=== PATIENT | male | born 1990 | race Caucasian/White ===

== ENCOUNTER 2019-08-31 21:09 | Emergency (ER) | payer OTHER ==
[~2019-08-31] VITALS: Ht 172.7 cm; Wt 88.0 kg
--- NOTE | 2019-08-31 21:59 | RAD ---
RS Compliance Statement: One or more of the following individualized dose reduction techniques were utilized for this examination: 1. Automated exposure control 2. Adjustment of the mA and/or kV according to patient size 3. Use of iterative reconstruction technique CT HEAD WITHOUT CONTRAST History: Dizzy, syncopal episode. Comparison: None. Procedure: Axial images are obtained of the head from the skull base through the vertex without IV contrast. Findings: The ventricles and sulci are normal for the patient's age. No mass-effect, midline shift, hemorrhage, extra-axial fluid collection, or obvious acute infarction is identified. Basilar cisterns are patent. Bone windows demonstrate no acute calvarial abnormality. The visualized paranasal sinuses are clear. Mastoid air cells are well aerated. IMPRESSION: No acute intracranial abnormality. Electronically signed by: Wagner Rice MD (08/31/2019 9:56 PM) [facility]
[2019-08-31] MEDS: IV NORMAL SALINE 1,000ML 1,000 ML IV ONE (22:00)
--- NOTE | 2019-08-31 22:06 | PHYS DOC ---
Past History Past Medical History: Other Additional Past Medical Histor: ADD Past Surgical History: Other Additional Past Surgical Histo: L SHOULDER, R PEC, R WRIST Alcohol Use: Occasionally Drug Use: None Adult General Chief Complaint Chief Complaint: DIZZY/LIGHT HEADED HPI HPI 28-year-old male presents with a couple episode yesterday and near-syncope today. He had left shoulder surgery 4 days ago. Yesterday, the patient is having pain and was getting ready to take a shower when I started talking was given a blackout. He sat down for about 15 minutes and began to feel better. His was helping him. As she stood back up to try to take a shower, he felt like he h as had a CT scan and before he could sit down he did have a syncopal episode. His was only able to partially catch him. He did not hit his head. He woke up after a brief period of unconsciousness. He was sleepy, but not postictal. He was very diaphoretic but did not have chest pain or shortness of breath. He decided not to come into the emergency room at that time. Today, he has been doing okay, but was outside with his dogs began to get a feeling of flushness and like he might pass out again. The patient has what decided he should be evaluated. The patient admits that he is taking 2 Lester 5/325 pills every 6 hours, but his pain is not well controlled. He additionally started taking an aspirin today. He is not taking any naproxen or ibuprofen. He denies fever. Review of Systems Review of Systems Constitutional: Denies fever or chills. Episodes of diaphoresis. [] Eyes: Denies change in visual acuity, redness, or eye pain [] HENT: Denies nasal congestion or sore throat [] Respiratory: Denies cough or shortness of breath [] Cardiovascular: No additional information not addressed in HPI [] GI: Denies abdominal pain, nausea, vomiting, bloody stools or diarrhea [] : Denies dysuria or hematuria [] Musculoskeletal: Left shoulder pain post surgery[] Integument: Denies rash or skin lesions [] Neurologic: Syncope. Denies headache, focal weakness or sensory changes [] Endocrine: Denies polyuria or polydipsia [] All other systems were reviewed and found to be within normal limits, except as documented in this note. Current Medications Current Medications Current Medications Medications (Trade) Dose Ordered Sig/Brain Start Time Stop Time Status Last Admin Dose Admin Sodium Chloride 1,000 ml @ 1,000 mls/hr 1X ONCE 08/31/19 22:00 08/31/19 22:59 Allergies Allergies Allergies Coded Allergies Type Severity Reaction Last Updated Verified morphine Allergy Mild NAUSEA 08/31/19 Yes Physical Exam Physical Exam Constitutional: Well developed, well nourished, no acute distress, non-toxic appearance. Patient appears uncomfortable with any movement of his left arm.[] HENT: Normocephalic, atraumatic, bilateral external ears normal, oropharynx dry, no oral exudates, nose normal. [] Eyes: PERRLA, EOMI, conjunctiva normal, no discharge. [] Neck: Normal range of motion, no tenderness, supple, no stridor. [] Cardiovascular:Heart rate regular rhythm, no murmur [] Lungs & Thorax: Bilateral breath sounds clear to auscultation [] Abdomen: Bowel sounds normal, soft, no tenderness, no masses, no pulsatile masses. [] Skin: Warm, dry, no erythema, no rash. Incisions of the left shoulder covered with Band-Aids. The surrounding skin is not erythematous or warm. [] Back: No tenderness, no CVA tenderness. [] Extremities: Left arm in a simple sling.[] Neurologic: Alert and oriented X 3, normal motor function, normal sensory function, no focal deficits noted. [] Psychologic: Affect normal, judgement normal, mood normal. [] Current Patient Data Vital Signs Vital Signs Date Time Temp Pulse Resp B/P (MAP) Pulse Ox O2 Delivery O2 Flow Rate FiO2 08/31/19 21:27 98.1 102 18 98 Room Air EKG EKG [] Radiology/Procedures Radiology/Procedures [] Impressions: PQRS Compliance Statement: One or more of the following individualized dose reduction techniques were utilized for this examination: 1. Automated exposure control 2. Adjustment of the mA and/or kV according to patient size 3. Use of iterative reconstruction technique CT HEAD WITHOUT CONTRAST History: Dizzy, syncopal episode. Comparison: None. Procedure: Axial images are obtained of the head from the skull base through the vertex without IV contrast. Findings: The ventricles and sulci are normal for the patient's age. No mass-effect, midline shift, hemorrhage, extra-axial fluid collection, or obvious acute infarction is identified. Basilar cisterns are patent. Bone windows demonstrate no acute calvarial abnormality. The visualized paranasal sinuses are clear. Mastoid air cells are well aerated. IMPRESSION: No acute intracranial abnormality. Electronically signed by: Wagner Carr MD (08/31/2019 9:56 PM) [facility] DICTATED AND SIGNED BY: WAGNER CARR MD DATE: 08/31/192155 CC: SUZE MENESES DO; NEGIN ORTEGA ~ Course & Med Decision Making Course & Med Decision Making Pertinent Labs and Imaging studies reviewed. (See chart for details) Patient's labs are unremarkable. His EKG is unremarkable. His troponin is negative. His head CT is negative for acute findings. I believe the patient is having vasovagal syncope and near syncope due to uncontrolled pain. I have advised that he take the 2 Lester every 4 hours as his surgeon has suggested. Also advised that he talk to the surgeon's office tomorrow about adding ibuprofen to his pain regimen. I will give the patient 2 Lester 5/325 for pain before he leaves. The patient is stable for discharge at this time. [] Dragon Disclaimer Dragon Disclaimer This electronic medical record was generated, in whole or in part, using a voice recognition dictation system. Departure Departure: Impression: Primary Impression: Vasovagal syncope Disposition: 01 HOME, SELF-CARE Condition: STABLE Referrals: NEGIN ORTEGA (PCP) Patient Instructions: Syncope, [id number] USZE MENESES DO Aug 31, 2019 22:06
[2019-08-31 22:17] LABS: BASO # 0.2 x10^3/uL (0.0-0.2); BASO % 1 % (0-3); EOS # 0.1 x10^3/uL (0.0-0.7); EOS % 1 % (0-3); HEMATOCRIT 47.6 % (39.0-53.0); HEMOGLOBIN 15.9 g/dL (13.0-17.5); LYMPH % 26 % (24-48); MEAN CORPUSCULAR HEMOGLOBIN 26 pg (25-35); MEAN CORPUSCULAR HGB CONC 33 g/dL (31-37); MEAN CORPUSCULAR VOLUME 78 fL (79-100); MONO # 0.8 x10^3/uL (0.0-1.1); MONO % 7 % (0-9); NEUT # 7.7 x10^3uL (1.8-7.7); NEUT % 65 % (31-73); PLATELET COUNT 252 x10^3/uL (140-400); RED BLOOD COUNT 6.07 x10^6/uL (4.30-5.70); RED CELL DISTRIBUTION WIDTH 13.6 % (11.5-14.5); WHITE BLOOD COUNT 11.8 x10^3/uL (4.0-11.0)
[2019-08-31 22:26] LABS: CALCIUM 9.1 mg/dL (8.5-10.1); GFR 89.6; POTASSIUM 3.9 mmol/L (3.5-5.1)
[2019-08-31 22:30] LABS: ALBUMIN 3.9 g/dL (3.4-5.0); ALBUMIN/GLOBULIN RATIO 1.2 (1.0-1.7); TOTAL BILIRUBIN 0.2 mg/dL (0.2-1.0); TOTAL PROTEIN 7.1 g/dL (6.4-8.2)
[2019-08-31 22:30] LABS: BARBITURATES NEG (NEG); BENZODIAZEPINES NEG (NEG); BILIRUBIN,URINE NEG (NEG); CANNABINOIDS NEG (NEG); CLARITY,URINE CLEAR; COCAINE NEG (NEG); COLOR,URINE YELLOW; GLUCOSE,URINE NEG (NEG); METHADONE NEG (NEG); OPIATES POS (NEG); PHENCYCLIDINE NEG (NEG)
[2019-08-31 22:31] LABS: AMPHETAMINE/METHAMPHETAMINE NEG (NEG); BACTERIA,URINE 0 /HPF (0-FEW); NITRITE,URINE NEG (NEG); RBC,URINE OCC /HPF (0-2); SQUAMOUS EPITHELIAL CELL,UR OCC /LPF; UROBILINOGEN,URINE 0.2 mg/dL (0.2 mg/dL); WBC,URINE OCC /HPF (0-4)
[2019-08-31 22:32] VITALS: BP 128/51
[2019-08-31] MEDS: HYDROcodone/APAP 5/325MG 1 TAB TABLET PO ONE (22:49)
--- NOTE | 2019-09-01 01:59 | RAD ---
CHEST PA LATERAL INDICATION: Dizziness. COMPARISON STUDY: None. FINDINGS: Lungs: Normal lung volume. No pulmonary mass or consolidation. The tracheobronchial tree and hilar structures are normal. Pleura: No pleural effusion or pneumothorax. Heart and Mediastinum: The cardiomediastinal silhouette is normal. The great vessels of the thorax are normal. Bones and Soft Tissues: The bones and soft tissues are within normal limits. IMPRESSION: No acute cardiopulmonary process. Electronically signed by: Elio Pruitt MD (09/01/2019 1:56 AM) [facility]
--- NOTE | 2019-09-01 21:50 | EKG ---
[address] [address] Test Date: 2019-08-31 Test Time: 22:06:51 Pat Name: FRANKY OLSON Department: Room: Gender: M Ceramic Tile Setter: : 1990 Requested By: SUZE MENESES Order Number: [id number] Reading MD: Measurements Intervals [place] Rate: 84 P: 52 CT: 170 QRS: 59 QRSD: 90 T: 38 QT: 344 QTc: 410 Interpretive Statements SINUS RHYTHM NO SPECIFIC ECG ABNORMALITIES RI6.01 No previous ECG available for comparison
== END 2019-08-31 22:53 | disposition home or self-care (01) ==
LOC: ER 21:09
DX: R55 Syncope and collapse (principal); G89.18 Other acute postprocedural pain; M25.512 Pain in left shoulder; F98.8 Other specified behavioral and emotional disorders with onset usually occurring in childhood and adolescence; Z98.890 Other specified postprocedural states
CPT/HCPCS: 36415; 70450; 71046; 80053; 80307; 81001; 85025; 93005; 96360; 99285-25; J7030

== ENCOUNTER 2019-12-13 14:49 | Emergency (ER) | payer OTHER ==
[~2019-12-13] VITALS: Ht 172.7 cm; Wt 125.0 kg
--- NOTE | 2019-12-13 15:20 | PHYS DOC ---
Past History Past Medical History: No Pertinent History, Other Additional Past Medical Histor: ADD Past Surgical History: Other Additional Past Surgical Histo: L SHOULDER, R PEC, R WRIST Alcohol Use: Occasionally Drug Use: None Adult General Chief Complaint Chief Complaint: SHORTNESS OF BREATH [facility] HPI 29-year-old male presents with cough, mild shortness of breath, body aches. 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 He has had these symptoms for several days. He is concerned about COVID 19. Review of Systems Review of Systems Constitutional: Chills, body aches [] Eyes: Denies change in visual acuity, redness, or eye pain [] HENT: Denies nasal congestion or sore throat [] Respiratory: Cough with mild shortness of breath [] Cardiovascular: No additional information not addressed in HPI [] GI: Denies abdominal pain, nausea, vomiting, bloody stools or diarrhea [] : Denies dysuria or hematuria [] Musculoskeletal: Denies back pain or joint pain [] Integument: Denies rash or skin lesions [] Neurologic: Denies headache, focal weakness or sensory changes [] Endocrine: Denies polyuria or polydipsia [] All other systems were reviewed and found to be within normal limits, except as documented in this note. Allergies Allergies Allergies Coded Allergies Type Severity Reaction Last Updated Verified morphine Allergy Mild NAUSEA 08/31/19 Yes Physical Exam Physical Exam Constitutional: Well developed, well nourished, no acute distress, appears ill but not toxic. [] HENT: Normocephalic, atraumatic, bilateral external ears normal, oropharynx moist, no oral exudates, nose normal. [] Eyes: PERRLA, EOMI, conjunctiva normal, no discharge. [] Neck: Normal range of motion, no tenderness, supple, no stridor. [] Cardiovascular:Heart rate regular rhythm, no murmur [] Lungs & Thorax: Bilateral breath sounds clear to auscultation [] Abdomen: Bowel sounds normal, soft, no tenderness, no masses, no pulsatile masses. [] Skin: Warm, dry, no erythema, no rash. [] Back: No tenderness, no CVA tenderness. [] Extremities: No tenderness, no cyanosis, no clubbing, ROM intact, no edema. [] Neurologic: Alert and oriented X 3, normal motor function, normal sensory function, no focal deficits noted. [] Psychologic: Affect normal, judgement normal, mood normal. [] Current Patient Data Vital Signs Vital Signs Date Time Temp Pulse Resp B/P (MAP) Pulse Ox O2 Delivery O2 Flow Rate FiO2 12/13/19 14:50 97.2 123/84 (97) EKG EKG [] Radiology/Procedures Radiology/Procedures [] Impressions: CHEST AP ONLY History: Shortness of breath Comparison: August 31, 2019 Findings: Single view of the chest is submitted. No significant infiltrate is identified by radiograph. There is no dependent pleural fluid or pneumothorax. Heart size is stable, within normal limits. Impression: 1. No significant infiltrate is identified by radiograph. Electronically signed by: William Cruz MD (12/13/2019 3:23 PM) [facility] [place] [facility] DICTATED AND SIGNED BY: WILLIAM CRUZ MD DATE: 12/13/19 1523 CC: SUZE MENESES DO; NEGIN ORTEGA ~ Course & Med Decision Making Course & Med Decision Making Pertinent Labs and Imaging studies reviewed. (See chart for details) The patient's history and his history of recent exposure to coronavirus patients makes it likely that he has coronavirus. The patient does not meet criteria to be admitted. He will not be tested at this time. I have advised him to quarantine himself until he is completely well for least 3 days. He is stable for discharge at this time. [] Dragon Disclaimer Dragon Disclaimer This electronic medical record was generated, in whole or in part, using a voice recognition dictation system. Departure Departure: Impression: Primary Impression: COVID-19 Disposition: 01 HOME, SELF-CARE Condition: STABLE Referrals: NEGIN ORTEGA (PCP) Patient Instructions: Viral Syndrome Additional Instructions: You should stay home and self quarantine. Anyone else in her household should also quarantine from the public. You should not into this quarantine until you have been feeling completely symptom-free for at least 3 days. If your condition worsens, call your doctor, the emergency room, or return to the emergency room if you feel your condition is life-threatening. SUZE MENESES DO Dec 13, 2019 15:20
--- NOTE | 2019-12-13 15:26 | RAD ---
CHEST AP ONLY History: Shortness of breath Comparison: August 31, 2019 Findings: Single view of the chest is submitted. No significant infiltrate is identified by radiograph. There is no dependent pleural fluid or pneumothorax. Heart size is stable, within normal limits. Impression: 1. No significant infiltrate is identified by radiograph. Electronically signed by: Elio Ordonez MD (12/13/2019 3:23 PM) [facility] [place]
[2019-12-13 15:48] LABS: INFLUENZA A PATIENT NEGATIVE (NEGATIVE); INFLUENZA B PATIENT NEGATIVE (NEGATIVE)
[2019-12-13 16:54] VITALS: BP 123/85
--- NOTE | 2019-12-16 10:00 | NUR ---
received call from lab, covid-19 is negative. ER notified.
== END 2019-12-13 17:00 | disposition home or self-care (01) ==
LOC: ER 14:49
DX: U07.1 COVID-19 (principal); Z88.5 Allergy status to narcotic agent
CPT/HCPCS: 71045; 87070; 87635; 87804; 87880; 99284

== ENCOUNTER 2020-06-18 10:35 | Emergency (ER) | payer OTHER ==
[~2020-06-18] VITALS: Ht 172.7 cm; Wt 125.0 kg
[2020-06-18] MEDS ORDERED: IV NORMAL SALINE 1,000ML 1,000 ML IV ONE (11:00)
[2020-06-18] MEDS ORDERED: MECLIZINE 12.5 MG TABLET. PO ONE (11:15)
--- NOTE | 2020-06-18 11:31 | PHYS DOC ---
Past History Past Medical History: No Pertinent History, Other Additional Past Medical Histor: ADD Past Surgical History: Other Additional Past Surgical Histo: L SHOULDER, R PEC, R WRIST Alcohol Use: Occasionally Drug Use: None General Adult EDM: Chief Complaint: OTHER COMPLAINTS HPI: HPI: Patient is a 29 year old M who presents with 20-30 min episodes of dizziness, diaphoresis, nausea, and hot flashes. He states that these episodes started yesterday afternoon after taking his second dose of tramadol which he was prescribed for his shoulder injury. He states that he had 2 episodes yesterday after standing up, and laying down and closing his eyes would help. This morning he had an episode in the car while sitting, during this he noticed some tingling in his left leg. He reports some generalized weakness and confusion. He denies any palpitations, shortness of breath, or chest pain. Pt states that he has been drinking 1/2 gallon of water everyday, but has lost some of his appetite. Review of Systems: Review of Systems: Constitutional: Denies fever or chills Eyes: Denies redness or eye pain HENT: Denies nasal congestion or sore throat Respiratory: Denies cough or shortness of breath Cardiovascular: Denies chest pain or palpitations GI: Denies abdominal pain, vomiting; reports nausea : Denies dysuria or hematuria Musculoskeletal: Denies back pain or joint pain Integument: Denies rash or skin lesions Neurologic: Denies headache or focal weakness Complete systems were reviewed and found to be within normal limits, except as documented in this note. Current Medications: Current Meds: Current Medications Medications (Trade) Dose Ordered Sig/Brain Start Time Stop Time Status Last Admin Dose Admin Dexamethasone Sodium Phosphate (Decadron) 10 mg 1X ONCE 06/18/20 12:00 06/18/20 12:01 Lorazepam (Ativan Inj) 0.5 mg 1X ONCE 06/18/20 11:00 06/18/20 11:02 DC 06/18/20 11:20 0.5 MG Meclizine HCl (Antivert) 25 mg 1X ONCE 06/18/20 11:15 06/18/20 11:16 DC 06/18/20 11:16 25 MG Sodium Chloride 1,000 ml @ 1,000 mls/hr 1X ONCE 06/18/20 11:00 06/18/20 11:59 06/18/20 11:18 1,000 MLS/HR Allergies: Allergies: Allergies Coded Allergies Type Severity Reaction Last Updated Verified morphine Allergy Mild NAUSEA 06/18/20 Yes Physical Exam: PE: Constitutional: Well developed, well nourished, no acute distress HENT: Normocephalic, atraumatic Eyes: EOMI, conjunctiva normal, no discharge Neck: Normal range of motion, supple Lungs & Thorax: No respiratory distress, equal chest rise and fall Abdomen: Soft, no tenderness Skin: Warm, no erythema, no rash Back: No tenderness, no CVA tenderness Extremities: No tenderness, no edema Neurologic: Alert and oriented X 3, no focal deficits noted Psychologic: Affect normal, judgment normal Current Patient Data: Vital Signs: Vital Signs Date Time Temp Pulse Resp B/P (MAP) Pulse Ox O2 Delivery O2 Flow Rate FiO2 06/18/20 10:46 97.9 94 13 123/65 (84) 99 Room Air EKG: EKG: @11:06 Normal sinus rhythm at [address] elevations or T wave inversions. QRS 82 ms, QT 326 ms, QTc 418 ms. Radiology/Procedures: Radiology/Procedures: [] Course & Med Decision Making: Course & Med Decision Making Pertinent Labs and Imaging studies reviewed. (See chart for details) [] Dragon Disclaimer: [employer] Disclaimer: This electronic medical record was generated, in whole or in part, using a voice recognition dictation system. Departure Departure: Impression: Primary Impression: Vertigo Additional Impression: Medication adverse effect Qualified Codes: T50.905A - Adverse effect of unspecified drugs, medicaments and biological substances, initial encounter Disposition: 01 HOME/RESIDENCE PRIOR TO ADM Condition: STABLE Referrals: NEGIN ORTEGA BUSINESS DEVELOPMENT ANALYST-C (PCP) Patient Instructions: Vertigo, [id number] Additional Instructions: Symptoms may be secondary to "tramadol". Please discontinue further use and add to allergies. Scripts Hydrocodone Bit/Acetaminophen (NORCO 5-325 TABLET) 1 Each Tablet 0.5-1 TAB PO Q6HRS PRN for PAIN, #10 TAB Prov: MARILU LEON DO 06/18/20 Meclizine Hcl (MECLIZINE HCL) 25 Mg Tablet 1 TAB PO PRN TID PRN for DIZZINESS, #20 TAB Prov: MARILU LEON DO 06/18/20 Prednisone (PREDNISONE) 20 Mg Tablet 2 TAB PO DAILY for Sinus congestion, #8 TAB Start this prescription tomorrow, 06/19/2020 Prov: MARILU LEON DO 06/18/20 MARILU LEON DO Jun 18, 2020 11:31
[2020-06-18 11:39] LABS: BASO # 0.1 x10^3/uL (0.0-0.2); BASO % 1 % (0-3); EOS % 0 % (0-3); HEMATOCRIT 45.7 % (39.0-53.0); HEMOGLOBIN 15.2 g/dL (13.0-17.5); LYMPH # 1.4 x10^3/uL (1.0-4.8); LYMPH % 11 % (24-48); MEAN CORPUSCULAR HEMOGLOBIN 26 pg (25-35); MEAN CORPUSCULAR HGB CONC 33 g/dL (31-37); MEAN CORPUSCULAR VOLUME 77 fL (79-100); MONO # 0.5 x10^3/uL (0.0-1.1); MONO % 4 % (0-9); NEUT # 10.7 x10^3uL (1.8-7.7); NEUT % 85 % (31-73); PLATELET COUNT 202 x10^3/uL (140-400); RED CELL DISTRIBUTION WIDTH 13.2 % (11.5-14.5); WHITE BLOOD COUNT 12.7 x10^3/uL (4.0-11.0)
[2020-06-18 11:57] LABS: CALCIUM 8.9 mg/dL (8.5-10.1); POTASSIUM 3.9 mmol/L (3.5-5.1)
[2020-06-18] MEDS ORDERED: DEXAMETHASONE SOD PHOS 10 MG/ML VIAL. IV ONE (12:00)
[2020-06-18 12:09] LABS: ALBUMIN 3.9 g/dL (3.4-5.0); ALBUMIN/GLOBULIN RATIO 1.1 (1.0-1.7); MAGNESIUM 1.9 mg/dL (1.8-2.4); TOTAL BILIRUBIN 0.7 mg/dL (0.2-1.0); TOTAL PROTEIN 7.4 g/dL (6.4-8.2)
[2020-06-18 13:36] LABS: BARBITURATES NEG (NEG); BENZODIAZEPINES NEG (NEG); CANNABINOIDS NEG (NEG); COCAINE NEG (NEG); METHADONE NEG (NEG); OPIATES NEG (NEG); PHENCYCLIDINE NEG (NEG)
[2020-06-18 13:41] LABS: AMPHETAMINE/METHAMPHETAMINE POS (NEG)
[2020-06-18 14:16] LABS: BILIRUBIN,URINE NEG (NEG); CLARITY,URINE CLEAR; COLOR,URINE STRAW; GLUCOSE,URINE NEG (NEG)
[2020-06-18 14:17] LABS: BACTERIA,URINE 0 /HPF (0-FEW); NITRITE,URINE NEG (NEG); RBC,URINE 0 /HPF (0-2); UROBILINOGEN,URINE 0.2 mg/dL (0.2 mg/dL); WBC,URINE 0 /HPF (0-4)
[2020-06-18] MEDS ORDERED: MECL-75 PO (14:53)
[2020-06-18] MEDS ORDERED: HYDR-3165 PO (14:53)
[2020-06-18] MEDS ORDERED: PRED20TA PO (14:53)
[2020-06-18 15:00] VITALS: BP 129/76
--- NOTE | 2020-06-18 21:09 | EKG ---
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
== END 2020-06-18 15:07 | disposition home or self-care (01) ==
LOC: ER 10:35
DX: R42 Dizziness and giddiness (principal); T40.425A Adverse effect of tramadol, initial encounter; R61 Generalized hyperhidrosis; R11.0 Nausea; Z88.5 Allergy status to narcotic agent; Y92.89 Other specified places as the place of occurrence of the external cause
CPT/HCPCS: 36415; 80053; 80307; 81001; 83735; 85025; 93005; 96361; 96374; 96375; 99285; G0480; J1100; J2060; J7030; J8597